=== PATIENT | female | born 1960 | race Caucasian/White ===

== ENCOUNTER 2016-03-31 16:23 | Emergency (ER) | payer OTHER ==
--- NOTE | 2016-03-31 17:47 | ED ORDER SUMMARY ---
..... Patient: ANGIE MARTINEZ OrderSheet [facility] VisitID: [id number] [address] [place] [address] 56y, F Registration Date/Time: 03/31/2016 ORDER SHEET Weight: 54.4 kg (stated) Allergies: No Known Drug Allergy GENERAL ORDERS: Vitals (Temp) (17:49 03/31/2016 Keren Pittman) (18:16 Leighann Guy.NBeata) MEDICATION ORDERS: Ativan PO 1 mg (HIGH ALERT MEDICATION, NOW) (17:05 03/31/2016 Keren Pittman) (17:30 Toi Mckenzie) IV FLUIDS: ORDER SHEET NOTES: [Electronically signed by Portia Rodriguez P.A.-C (17:51 03/31/2016)] [Electronically signed by Mellisa Franklin R.N. (18:19 03/31/2016)] [Electronically locked/signed by Mellisa Franklin R.N. (18:19 03/31/2016)]
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
--- NOTE | 2016-03-31 17:47 | ED ORDER SUMMARY ---
..... Patient: ANGIE MARTINEZ OrderSheet [facility] VisitID: [id number] [address] [place] [address] 56y, F Registration Date/Time: 03/31/2016 ORDER SHEET Weight: 54.4 kg (stated) Allergies: No Known Drug Allergy GENERAL ORDERS: Vitals (Temp) (17:49 03/31/2016 Keren Pittman) (18:16 Leighann Guy.NBeata) MEDICATION ORDERS: Ativan PO 1 mg (HIGH ALERT MEDICATION, NOW) (17:05 03/31/2016 Keren Pittman) (17:30 Toi Mckenzie) IV FLUIDS: ORDER SHEET NOTES: [Electronically signed by Portia Rodriguez P.A.-C (17:51 03/31/2016)] [Electronically signed by Mellisa Franklin R.N. (18:19 03/31/2016)] [Electronically locked/signed by Mellisa Franklin R.N. (18:19 03/31/2016)]
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
--- NOTE | 2016-03-31 18:19 | ED MAR SUMMARY ---
..... Medication Administration Record [facility] [address] [place] [address] Patient: ANGIE MARTINEZ Visit ID: [id number] 56y, F Weight: 54.4 kg Height/Length: 59 in BMI: 24.2 ALLERGIES: No Known Drug Allergy Given 17:20 03/31/2016 Shahbaz Dwyer, RBeataNBeata Medication Administered: ATIVAN [PO] (LORAZEPAM), Dose: 1 mg Tablets PO. Medication Ordered: Ativan PO 1 mg (HIGH ALERT MEDICATION, NOW).
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
--- NOTE | 2016-03-31 18:19 | ED MED RECONCILIATION SUMMARY ---
Patient: ANGIE MARTINEZ Medication Reconciliation Report [facility] VisitID: [id number] [address] [place] [address] 56y, F Registration Date/Time: 03/31/2016 Weight: 54.4 kg Height/Length: 59 in. BMI: 24.2 ALLERGIES: No Known Drug Allergy The patient's Home Medications are listed below: THE FOLLOWING MEDICATIONS NEED TO BE RECONCILED: Lovastatin Oral Metoprolol Tartrate Oral Tamoxifen Citrate Oral The source(s) of the original Home Medication information: patient's pill bottles The following Medications were given to the patient in the Emergency Department: Ativan [PO] PO 1 mg, administered: 03/31/2016 5:20:00 PM The following Medications were prescribed to the patient: Take OTC medications according to label instructions. Available over the counter. -- Portia Rodriguez, P.A.-C Acetaminophen (available over the counter): take according to label instructions. -- Portia Rodriguez, P.A.-C Motrin (available over the counter): take according to label instructions. -- Portia Rodriguez, P.A.-C
--- NOTE | 2016-03-31 18:19 | ED MAR SUMMARY ---
..... Medication Administration Record [facility] [address] [place] [address] Patient: ANGIE MARTINEZ Visit ID: [id number] 56y, F Weight: 54.4 kg Height/Length: 59 in BMI: 24.2 ALLERGIES: No Known Drug Allergy Given 17:20 03/31/2016 Shahbaz Dwyer, RBeataNBeata Medication Administered: ATIVAN [PO] (LORAZEPAM), Dose: 1 mg Tablets PO. Medication Ordered: Ativan PO 1 mg (HIGH ALERT MEDICATION, NOW).
--- NOTE | 2016-03-31 18:19 | ED MED RECONCILIATION SUMMARY ---
Patient: ANGIE MARTINEZ Medication Reconciliation Report [facility] VisitID: [id number] [address] [place] [address] 56y, F Registration Date/Time: 03/31/2016 Weight: 54.4 kg Height/Length: 59 in. BMI: 24.2 ALLERGIES: No Known Drug Allergy The patient's Home Medications are listed below: THE FOLLOWING MEDICATIONS NEED TO BE RECONCILED: Lovastatin Oral Metoprolol Tartrate Oral Tamoxifen Citrate Oral The source(s) of the original Home Medication information: patient's pill bottles The following Medications were given to the patient in the Emergency Department: Ativan [PO] PO 1 mg, administered: 03/31/2016 5:20:00 PM The following Medications were prescribed to the patient: Take OTC medications according to label instructions. Available over the counter. -- Portia Rodriguez, P.A.-C Acetaminophen (available over the counter): take according to label instructions. -- Portia Rodriguez, P.A.-C Motrin (available over the counter): take according to label instructions. -- Portia Rodriguez, P.A.-C
== END 2016-03-31 18:16 | disposition home or self-care (01) ==
LOC: ED SRH 16:23
DX: Z04.1 Encounter for examination and observation following transport accident (principal); I10 Essential (primary) hypertension; E03.9 Hypothyroidism, unspecified

== ENCOUNTER 2016-06-12 10:49 | Outpatient (CLI) | payer OTHER ==
--- NOTE | 2016-06-14 11:39 | DIAGNOSTIC IMAGING REPORT ---
PROCEDURE: MG UNILAT SCREEN-RIGHT W/CAD INDICATION: RT SCREENING. Left mastectomy. TECHNIQUE: CC and MLO digital views. COMPARISON: Mammogram 10/26/2013. FINDINGS: Computer-aided detection applied. Moderately dense pattern. No suspicious mass, architectural distortion or suspicious microcalcifications. No significant interval change. IMPRESSION: 1. Negative right mammogram RESULT CODE: 1- Negative. A. A negative report should not delay biopsy if a dominant or clinically suspicious mass is present. 10-15% of cancers are not identified by x-ray. B. A negative report may reinforce clinical impression. C. Adenosis and dense breasts may obscure an underlying neoplasm. D. False positive reports average 6-10%. E.. A yearly screening mammogram is recommended. A reminder letter will be scheduled.
== END 2016-06-12 23:00 ==
LOC: MAM SRH 10:49
DX: Z12.31 Encounter for screening mammogram for malignant neoplasm of breast (principal); Z90.12 Acquired absence of left breast and nipple